=== PATIENT | male | born 1985 | race Caucasian/White ===

== ENCOUNTER 2025-01-17 09:27 | Emergency (ER) | payer SELFPAY ==
[2025-01-17 09:28] VITALS: BMI 28.7
[2025-01-17 09:35] VITALS: BP 129/81; PULSE 102; RESP 18; TEMP 36.8; O2SAT 97; BMI 30.7
--- NOTE | 2025-01-17 09:38 | PD.EDWOUND ---
ED Wound/Laceration-RME/HPI General Chief Complaint: Wound/Laceration Stated Complaint: L) 3RD DIGIT LAC Time Seen by Provider: 01/17/25 09:31 Arrival date/time: 01/17/25 09:27 39-year-old male present to the emergency department today for complaints that he accidentally cut himself today. Patient reports that he has a laceration to the middle finger distal aspect on the palmar aspect unknown last tetanus Limitations: no limitations Related Data Previous Rx's ?Medication ?Instructions ?Recorded Cyclobenzaprine * (FLEXERIL *) 10 mg PO Q8HR PRN PAIN #15 tabs 11/17/14 Allergies Allergy/AdvReac Type Severity Reaction Status Date / Time No Known Allergies Allergy Unverified 01/17/25 09:45 Review of Systems Review of Systems Systems Reviewed: All systems reviewed, normal except as documented Constitutional Constitutional: Reports system reviewed and no additional complaints, except as documented, Denies fever(s) and Denies headache(s) Eyes Eyes: Reports system reviewed and no additional complaints, except as documented and Denies blurry vision ENT Ears, Nose, Mouth, and Throat: Reports system reviewed and no additional complaints, except as documented, Denies headache(s), Denies nasal congestion and Denies nasal discharge Cardiovascular Cardiovascular: Reports system reviewed and no additional complaints, except as documented, Denies chest pain and Denies dyspnea Respiratory Respiratory: Reports system reviewed and no additional complaints, except as documented, Denies chest congestion, Denies cough and Denies dyspnea Gastrointestinal Gastrointestinal: Reports system reviewed and no additional complaints, except as documented and Denies abdominal pain Integumentary/Breasts Skin/Breast: Reports system reviewed and no additional complaints, except as documented, Denies rash and Reports wounds (Laceration left middle finger) Neurologic Neurologic: Reports system reviewed and no additional complaints, except as documented, Reports as per HPI and Denies headache(s) Past Medical History Social History SMOKING STATUS: Never smoker ED Exam General Limitations: Present no limitations General appearance: Present alert and in no apparent distress Head Head exam: Present atraumatic Eye Eye exam: Present normal appearance, PERRL and EOMI ENT ENT exam: Present normal exam, normal oropharynx and mucous membranes moist Neck Neck exam: Present normal inspection, full ROM and trachea midline Chest Chest inspection: Present normal inspection and symmetric chest wall rise Respiratory Respiratory exam: Present normal lung sounds bilaterally Cardiovascular Cardiovascular exam: Present regular rate, normal rhythm and normal heart sounds Abdominal Exam Abdominal exam: Present soft and normal bowel sounds Extremities Exam Extremities exam: Present normal inspection and full ROM Back Exam Back exam: Present normal inspection and full ROM Neurological Exam Neurological exam: Present alert, oriented X3 and CN II-XII intact Psychiatric Psychiatric exam: Present normal affect and normal mood Skin Skin exam: Present warm, dry and other (Laceration left middle finger) Course Quality Measures none Orders Category Date Time Status Set Up Suture Tray STAT Care 01/17/25 09:39 Completed Wound Care NOW Care 01/17/25 09:39 Completed Lidocaine 1% 20 ml [Xylocaine 1% 20 ML] Med 01/17/25 09:39 Discontinued 20 ml INFL X1 ONE TET,DIP/PERT AC (Adult)-Tdap [Boostrix Adult (Tdap) Med 01/17/25 09:39 Discontinued Vacc] 0.5 ml IMI .ONCE ONE Vital Signs Vital signs: Vital Signs Temperature 98.3 F 01/17/25 09:35 Pulse Rate 102 H 01/17/25 09:35 Respiratory Rate 18 01/17/25 09:35 Blood Pressure 129/81 01/17/25 09:35 Pulse Oximetry (%) 97 01/17/25 09:35 Oxygen Delivery Method Room Air 01/17/25 09:35 O2 saturation 97% room air within normal limits PROCEDURES: Laceration Laceration 1: Site: hand Side (If applicable): left Size (cm): 3 Description: linear Depth: simple, single layer Local Anesthetic: lidocaine 1% Amount of anesthesia used (mL): 5 Pre-repair: wound explored and irrigated extensively Skin layer closed with: nylon Suture size (cm): 4-0 Number of sutures: 10 Technique: simple, interrupted Wound / Laceration MDM Narrative MDM Narrative:: 39-year-old male present to the emergency department today for complaints that he accidentally cut himself today. Patient reports that he has a laceration to the middle finger distal aspect on the palmar aspect unknown last tetanus On exam patient well-appearing does not appear ill or toxic no acute distress Wound to go to copiously laceration. Total of 10 sutures applied wound is well-approximated patient has no evidence of tendon or ligamentous injury Patient discharged home in no distress to follow-up with primary care doctor in the next 24 to 48 hours and for any worsening symptoms to return to the ER immediately Patient data External records reviewed:: [facility] previous records Clinical information provided by:: patient Social determinants that could affect healthcare access:: none Patient has the following chronic illnesses:: None How is presenting disease/condition affected by chronic disease/condition?: no chronic disease Evaluation data The following diagnostics were reviewed and interpreted by me:: other (specify) (N/A) Lab and/or radiology exams considered but not ordered:: N/A Interpretation Summary: N/A Medications / Prescriptions Medications or Prescriptions considered but not ordered:: Given Medication administrations:: Medication Administration History Discontinued Medications Diphtheria/Tetanus/Acell Pertussis (Diphth,Pertuss(Acell),Tet Vac 0.5 Ml Syr- Adult) 0.5 ml IMi .ONCE ONE Stop: 01/17/25 09:40 Last Admin: 01/17/25 10:04 Dose: 0.5 ml Documented By: DORY Lidocaine HCl (Lidocaine Hcl 1% 20 Ml Vial) 20 ml INFL X1 ONE Stop: 01/17/25 09:40 Last Admin: 01/17/25 10:07 Dose: 20 ml Documented By: DORY Comments: used by provider Given Consultations Consultation(s) initiated? (list below): No Diagnosis Wound Differential Diagnosis: laceration, abscess, abrasion and avulsion of skin Most likely diagnosis given after review of the tests above:: Laceration Admission Indicated Admission indicated?: not indicated Admission Request Was there a request for admission?: No Disposition Plan Disposition Plan: Discharge Discharge Attestation Discharge Attestation: The patient and all family members were given an opportunity to ask questions and understood the discharge instructions. Discharge instructions specifically effects, indications for sooner follow up or return to the emergency department, and the expected course of current diagnosis. Patient condition: Stable Discharge Plan Plan Patient Disposition: HOME (Self Care) Discharge Disposition comment: Stable Prescriptions/Referrals Prescriptions/Med Rec: No Action Cyclobenzaprine * (FLEXERIL *) 10 MG tablet 10 mg PO Q8HR PRN (Reason: PAIN) Qty: 15 0RF Problem List Clinical Impression: Laceration of left middle finger Patient/Caregiver Discharge Instructions Education Materials: ED Laceration: All Closures Additional Instructions: Please follow up with your primary care doctor in the next 24-48hrs for any worsening symptoms return here immediately Please have sutures removed in 10 days Print Language: Dominican Stand Alone Forms: [place] Award Info., Patient Portal Info Letter Vaccines Vaccines Given During Stay: TDaP PA/SPECIAL DELIVERY CARRIER Supervising Physician PA/SPECIAL DELIVERY CARRIER Supervising Physician: dr price
[2025-01-17] MEDS: DIPHTH,PERTUSS(ACELL),TET VAC 0.5 ML SYR- ADULT IMi (10:04)
[2025-01-17] MEDS: LIDOCAINE HCL 1% 20 ML VIAL INFL (10:07)
--- NOTE | 2025-01-17 10:20 | PC.NURSE ---
wound care provided, triple antibiotic and sterile dressing applied at this time. pt tolerated well, denies any pain or discomfort
== END 2025-01-17 10:22 | disposition home or self-care (01) ==
LOC: SERX 10:19
PROVIDERS: Emergency Provider Emergency Medicine
DX: S61.213A Laceration without foreign body of left middle finger without damage to nail, initial encounter (principal); Z23 Encounter for immunization; W45.8XXA Other foreign body or object entering through skin, initial encounter
CPT/HCPCS: 12002; 90471; 90715; 99282; J3490